=== PATIENT | male | born 1960 | race Caucasian/White ===

== ENCOUNTER 2020-12-26 16:49 | Emergency (ER) | payer MEDICAID, SELFPAY ==
--- NOTE | ~2020-12-26 | XR_ITS ---
EXAMINATION: XR FOREARM, RIGHT CLINICAL INFORMATION: Penetrating wound COMPARISON: None TECHNIQUE: AP and lateral views of the right forearm were obtained. FINDINGS: The bones and soft tissues are normal aside from bandage overlying the upper forearm. No foreign bodies seen. No fracture. Imaged portions of the elbow and wrist are unremarkable. XR/XR forearm RT 2V IMPRESSION: Normal right forearm.
[2020-12-26 16:54] VITALS: BP 164/98; PULSE 82; O2SAT 98
[2020-12-26 17:56] VITALS: BP 128/92; PULSE 65; RESP 18; TEMP 37.1; O2SAT 98; BMI 25.1
--- NOTE | 2020-12-26 18:45 | ED.SKABFB ---
HPI - Skin/Abscess/Foreign Bdy General Chief complaint: Skin/Abscess/Foreign Body Stated complaint: forearm lac Time Seen by Provider: 12/26/20 18:18 Source: patient Mode of arrival: ambulatory Limitations: no limitations History of Present Illness HPI narrative: 60 y/o male with history of hepatitis C, history of CAD s/p CABG who presents to the ER with a deep laceration to his dorsal right forearm that he sustained at work just prior to arrival when a metal leg of a piece of air conditioning equipment punctured his proximal forearm. He reports pulling the metal piece out with immediate bleeding and pain. He initially had some numbness and tingling in his left hand which resolved upon arrival. He is UTD on his Tdap. MD complaint: laceration Onset (ago): hour(s) Tetanus up to date: yes Location: RUE Severity: moderate Severity scale (1-10): 5 Quality: aching Pain Consistency: constant Relieving factors: cold therapy and rest Exacerbating factors: palpation and movement Associated symptoms: denies other symptoms Treatments prior to arrival: bandages Related Data Previous Rx's Medication Instructions Recorded cephalexin 500 mg capsule 500 mg PO Q6H 3 Days #12 cap 12/26/20 Allergies Allergy/AdvReac Type Severity Reaction Status Date / Time No Known Allergies Allergy Verified 12/26/20 17:55 Review of Systems Constitutional: Constitutional: Denies chills and Denies fever(s) Eyes: Eyes: Reports no additional eye complaints ENT: Denies dizziness Cardiovascular: Cardiovascular: Denies chest pain and Denies rapid heart rate Gastrointestinal: Gastrointestinal: Denies nausea and Denies vomiting Musculoskeletal: Musculoskeletal: Denies limited range of motion, Denies numbness, Reports radiating pain into limb and Denies tingling Integumentary/Breasts: Skin/Breast: Reports swelling and Reports wounds Neurologic: Denies dizziness, Denies numbness and Denies tingling Hematologic/Lymphatic: Hematologic/Lymphatic: Reports easy bleeding PMFSH Past Medical History Attestation statement: The following information was validated with the patient. Social History Social History Advance Directives: No Advance Directives Information Provided: Yes Physical Exam Vital Signs: Vital Signs: Last Vital Signs Temp 98.7 F 12/26/20 17:56 Pulse 65 12/26/20 17:56 Resp 18 12/26/20 17:56 BP 128/92 H 12/26/20 17:56 Pulse Ox 98 12/26/20 17:56 Body Mass Index 25.1 Appearance: Alert. Oriented X3. No acute distress. HEENT: normal inspection CVS: Normal heart rate and rhythm. Pulses normal. Respiratory: No respiratory distress. Skin: Skin warm and dry. Normal skin color. Normal skin turgor. No rashes. Extremities: dorsal right forearm with 4cm deep laceration to the proximal forearm, exposed adipose tissue with active bleeding, surrounding hematoma. NV intact distally. compartments of the forearm are soft and compressible. Neuro: Oriented X 3. No motor deficit. No sensory deficit. Course Course Course Narrative: 60 y/o male presenting with a deep bleeding laceration from a penetrating wound. XR is negative for bone involvement. Active bleeding required multiple deep sutures to control bleeding. Wound explored, extensively cleaned and closed with assistance of Dr. Hansen. Will give ppx keflex given wound was deep with surrounding hematoma. Did not appear be to enlarging and arm was soft. Pressure dressing and ice applied. Patient counseled on warning signs to prompt urgent re-evaluation. Stable for d/c home. Procedures Laceration Laceration 1: Site: upper extremity Side (If applicable): right Size (cm): 4 Description: irregular Depth: involves muscle layer Local Anesthetic: lidocaine 2% Amount of anesthesia used (mL): 5 Pre-repair: wound explored, irrigated extensively and deep structures intact Skin layer closed with: nylon Size (cm): 4-0 Number of sutures: 5 Technique: simple, interrupted Subcutaneous layer closed with: chromic gut Size: 3-0 Number of sutures: 5 Technique: simple, interrupted Discharge Plan Discharge Clinical Impression: Laceration, Hematoma Patient Disposition: Home, Self-Care Instructions: Laceration (ED), Hematoma (ED) Additional Instructions: Your x-ray today was normal. 5 external sutures were placed that need to be removed in 7-10 days. Do not get wound wet for at least 24 hours, after that you can briefly wash with soap and water then pat dry. Recommend wearing the dana wrap for compression of the hematoma on your arm. Elevate your arm when possible and use ice to the area several times per day. If you develop increased swelling, pain, numbness, tingling or any other concerning symptoms come back to the ER for further evaluation. Prescriptions: New cephalexin 500 mg capsule 500 mg PO Q6H 3 Days Qty: 12 RF: 0 Interventions: ED Discharge Assessment Last Done: 12/26/20 19:43 Discharge Date/Time: 12/26/20 19:45
[2020-12-26] MEDS: Lidocaine HCl 2 % MPF 5 ML VIAL INFILTRATI (19:10)
--- NOTE | 2020-12-26 19:10 | PC.NURSE ---
xylocaine given by provider. george at bedside pt arm bleeding and not stopping. pt is tolerating this well. pt states he is on aspiran.
== END 2020-12-26 19:45 | disposition home or self-care (01) ==
PROVIDERS: Emergency Provider Emergency Medicine
DX: S51.811A Laceration without foreign body of right forearm, initial encounter (principal); S50.11XA Contusion of right forearm, initial encounter; W26.8XXA Contact with other sharp object(s), not elsewhere classified, initial encounter; Y93.89 Activity, other specified; Y92.9 Unspecified place or not applicable; Y99.0 Civilian activity done for income or pay
CPT/HCPCS: 12032; 73090; 99282; 99284